=== PATIENT | male | born 1985 | race Hispanic/Latino ===

== ENCOUNTER 2020-12-20 11:18 | Emergency (ER) | payer BC ==
[2020-12-20 13:08] LABS: SARS-COV-2 RT PCR POSITIVE (NEGATIVE)
--- NOTE | 2020-12-20 14:40 | RAD REPORT ---
EXAM DESCRIPTION: RAD - Chest Pa And Lat (2 Views) - 12/20/2020 2:25 pm CLINICAL HISTORY: Cough;Chest pain Chest pain. COMPARISON: No comparisons FINDINGS: Moderate bilateral interstitial and alveolar lung opacities are present, more significant on the left. This is most likely related to pneumonia. The heart is normal in size.
--- NOTE | 2020-12-20 16:51 | ER ---
Nurse's Notes [facility] Name: Anthony Asencio Age: 35 yrs Sex: Male : 1985 Arrival Date: 12/20/2020 Time: 11:24 Bed Waiting Private MD: Diagnosis: Presentation: 12/20 11:39 Chief complaint: Patient states: Cough x 2 days, has gotten worse. Hurts my chest and ca1 gives me headaches from coughing too hard. Denies fever. Reports chills. Coronavirus screen: Client denies travel out of the [place] in the last 14 days. chills, cough unrelated to allergies, headache, Client presents with at least one sign or symptom that may indicate coronavirus-19. Standard/surgical mask placed on the client. Provider contacted for isolation considerations. The client denies any previous COVID testing. Ebola Screen: Patient negative for fever greater than or equal to 101.5 degrees Fahrenheit, and additional compatible Ebola Virus Disease symptoms Patient denies exposure to infectious person. Patient denies travel to an Ebola-affected area in the 21 days before illness onset. No symptoms or risks identified at this time. Initial Sepsis Screen: Does the patient meet any 2 criteria? No. Patient's initial sepsis screen is negative. Does the patient have a suspected source of infection? No. Patient's initial sepsis screen is negative. Risk Assessment: Do you want to hurt yourself or someone else? Patient reports no desire to harm self or others. Onset of symptoms was December 19, 2020. 11:39 Method Of Arrival: Ambulatory ca1 11:39 Acuity: HARPAL 3 ca1 13:08 Coronavirus screen: Client reports previous positive COVID test result. Date of ca1 collection: December 20, 2020 Staff notified of need for isolation. Historical: - Allergies: 11:42 No Known Allergies; ca1 - Home Meds: 11:42 None [Active]; ca1 - PMHx: 11:42 None; ca1 - PSHx: 11:42 R shoulder SUrg; ca1 - Immunization history:: Flu vaccine is not up to date. - Social history:: Smoking status: Patient denies any tobacco usage or history of. Assessment: 16:44 Reassessment: Called pt through phone. Called went to . Left . Registration Deana reich said "pt left at 1452 to go to [facility]. Someone informed him of his Covid test result and that he would just inform [facility]". Vital Signs: 11:39 BP 102 / 70; Pulse 100; Resp 18 S; Temp 97.2(TE); Pulse Ox 92% on R/A; Weight 88.45 kg ca1 (R); Height 5 ft. 11 in. (180.34 cm) (R); Pain 7/10; 11:39 Body Mass Index 27.20 (88.45 kg, 180.34 cm) ca1 ED Course: 11:24 Patient arrived in ED. as 11:41 Triage completed. ca1 11:42 Arm band placed on right wrist. ca1 13:00 COVID swab sent to lab. Flu and/or RSV swab sent to lab. ca1 14:24 Chest Pa And Lat (2 Views) XRAY In Process Unspecified. EDMS 16:03 Thomas Charles PA is PHCP. [facility] 16:03 Mark Guillen MD is Attending Physician. [facility] 16:43 Patient's name was called from ER lobby. No response. Unable to locate patient. Will ca1 disposition as left without being seen by a provider. Administered Medications: No medications were administered Outcome: 16:50 Patient left the ED. ca1 Signatures: Dispatcher [employer] EDOR Thomas Charles PA PA jmm Martinez, Amelia as Acob, Cheryl, RN RN ca1 Corrections: (The following items were deleted from the chart) 12:21 12:14 Influenza Screen (A \\T\\ B)+[id number].BRZ drawn and sent. ca1 EDMS 15:10 15:09 Coronavirus screen: Client reports previous positive COVID test result. Date of ca1 collection: December 20, 2020 Staff notified of need for isolation. ca1
[2020-12-20 17:08] VITALS: BP 102/70; TEMP 97.2; O2SAT 92
--- NOTE | 2020-12-21 07:53 | EKG ---
Test Date: 2020-12-20 Test Time: 11:51:26 Ton Cylinder Inspector: DONELL MEASUREMENT RESULTS: Intervals: Rate: 96 IA: 154 QRSD: 102 QT: 356 QTc: 449 Mathis: P: 49 IA: 154 QRS: -46 T: 49 INTERPRETIVE STATEMENTS: Normal sinus rhythm Left axis deviation Pulmonary disease pattern Abnormal ECG No previous ECG available for comparison Electronically Signed On 12-21-20 07:49:42 PROFESSIONAL TUTOR by Damion Flood
== END 2020-12-20 16:50 | disposition left against medical advice (07) ==
LOC: ER 11:18
DX: U07.1 COVID-19 (principal); Z53.21 Procedure and treatment not carried out due to patient leaving prior to being seen by health care provider
CPT/HCPCS: 93005; 0240U; 71046; 99283